=== PATIENT | male | born 1930 | race Caucasian/White ===

== ENCOUNTER 2017-11-19 21:31 | Inpatient (IN) ==
--- NOTE | 2017-11-19 21:56 | Emergency Department Note ---
Disposition Clinical Impression: Hypertensive emergency, Elevated troponin, Nausea and vomiting, Altered mental state Disposition: Admitted As Inpatient Condition: Fair Referrals: Regulo Glover DO [Primary Care Provider] - Forms: ED Satisfaction Letter Time of Disposition: 00:35 Neuro HPI - General Chief Complaint: ED Neuro Symptoms/Deficit Stated Complaint: weakness Time Seen by Provider: 11/19/17 21:40 Source: family Limitations: altered mental status, physical limitation Nursing Notes Reviewed: Yes Vital Signs Reviewed: Yes - History of Present Illness HPI Narrative: 87-year-old male presents from home with son and granddaughter bedside. Yesterday, he had an episode of confusion which spontaneously resolved after an unknown amount time. This evening, he vomited after which he was mumbling and appeared to be confused. This occurred at approximately 18:30. Patient's son notes that patient was weak in his lower extremities in transitioning him from the house to the car. Patient continues to mumble and babble in route. This spontaneously resolves on arrival to this facility. At baseline, patient lives independently with his and is mentally sharp. Patient states he generally does not feel good. PMH: Hypertension, CAD with ACS status post stent 1 No history of CVA, TIA, coagulopathy, cardiac dysrhythmia. Antiplatelet: Aspirin and Plavix Anticoagulant: None ROS: Positive: As above Negative: Fever, chills, chest pain, palpitations, changes in vision, numbness, tingling. - Related Data Allergies/Adverse Reactions: Allergies Allergy/AdvReac Type Severity Reaction Status Date / Time morphine Allergy Confusion Verified 11/19/17 22:13 All systems ED: reviewed and negative except as stated. Review of Systems: As Per HPI Past Medical History - Past Medical History Medical history: Reports: cancer, COPD, coronary artery disease, hyperlipidemia , hypertension Psychiatric history: Reports: no psych history - Social History Smoking Status: Former smoker Alcohol use: Reports: none Drug use: Reports: none Physical Exam Vital Signs Reviewed General: Patient is alert, oriented to self, location, and in no acute distress. Head: atraumatic, normocephalic Eye: normal appearance, PERRL, EOMI, no scleral icterus, no conjunctival injection ENT: mucous membranes moist, normal external ear exam Neck: normal inspection, trachea midline, full ROM Chest: normal inspection, symmetric chest rise Respiratory: Good respiratory effort. Bilateral breath sounds are clear without wheezing, crackles, or rhonchi. Cardiovascular: Regular rate and rhythm. No clicks, rubs, gallops, or murmors. Normal heart sounds. Abdomen: Bowel sounds present normoactive x-4 quadrants. Abdomen is soft, nondistended, and nontender. No guarding or rebound. No organomegaly noted. Musculoskeletal: Spontaneously moving all extremities. Skin: warm, dry, intact. Neuro: GCS 15. Alert and oriented x4. Sensation light touch intact and equal bilateral upper and lower extremities. Strength 5/5 and equal bilateral upper lower extremity is. No pronator drift. Negative finger to nose. Negative heel to farrar. No dysarthria. Psych: Patient's affect is appropriate for situation. - General Limitations: altered mental status, physical limitation Course Course Narrative: Nurse at bedside states the patient did not know where he was on initial intake however, minutes later on my evaluation, patient did know he was at [facility]. Clinical concern is for TIA vs CVA. NIHSS 0. EKG #1 EKG dated 11/19/2017 at 21:37 interpreted as sinus rhythm with rate of 71. ND 228, QTc 453. First-degree AV block. Right bundle branch block. Normal axis. Nonspecific ST-T changes. Compared to previous EKG dated 06/30/1999 showing no acute ischemic changes comparison. EKG #2 EKG dated 11/19/2017 at 22:29 interpreted as sinus rhythm with PAC. First- degree AV block with prolonged ND. QTC 456. Normal axis. Right bundle branch block. Nonspecific ST-T changes. Serum hematology is unremarkable. Serum chemistry shows elevation in creatinine; must assume acute kidney injury in the context of no historian values for comparison. Elevation in troponin of 0.17. No EKG changes. CT head unremarkable. X-ray chest unremarkable. Patient remains hypertensive greater than 200. Concern for hypertensive emergency with kidney injury with elevated creatinine, cardiac injury with troponin, potential cerebral changes with his TIA-like symptoms. We will begin nicardipine drip. Hold on heparin given the patient's hypertension. I discussed the above with the admitting hospitalist who agrees to accept the patient for continued evaluation and management. Head CT 11/19/17 21:51 IMPRESSION: No acute intracranial abnormality. Chronic small vessel ischemic white matter disease and diffuse cerebral volume loss. 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 Right maxillary sinusitis. D/ / 11/19/2017 22:31:58 Isaac Grande MD / alissa Interpreting Provider: Isaac Grande MD Chest X-Ray 11/19/17 21:52 IMPRESSION: Mildly enlarged cardiomediastinal silhouette. No evidence of consolidation, pneumothorax, or pleural effusion. Findings suggestive of COPD. D/ / 11/19/2017 22:37:34 Isaac Grande MD / alissa Interpreting Provider: Isaac Grande MD Vital Signs Temperature 98.3 F 11/19/17 21:36 Pulse Rate 71 11/19/17 21:36 Respiratory Rate 24 11/19/17 21:36 Blood Pressure 225/98 11/19/17 21:36 O2 Sat by Pulse Oximetry 94 11/19/17 21:36 Temperature 98.3 F 11/19/17 21:36 Pulse Rate 79 11/19/17 23:58 Respiratory Rate 19 11/19/17 23:58 Blood Pressure 157/74 11/19/17 23:58 O2 Sat by Pulse Oximetry 96 11/19/17 23:58 Oxygen Delivery Oxygen Delivery Nasal Cannula Neuro Symptoms/Deficit - Lab Data Result diagrams: 11/19/17 21:43 11/19/17 21:43 Lab Results 11/19/17 11/19/17 11/19/17 Range/Units 21:43 21:43 21:43 WBC 9.9 (4.3-11.1) K/mcL RBC 4.61 (4.19-5.50) M/mcL Hgb 14.5 (12.9-16.9) g/dL Hct 42.5 (37.5-50.1) % MCV 92.2 (83.0-100.0) fL MCH 31.5 (28.0-33.3) pg MCHC 34.1 (31.6-35.5) g/dL RDW 12.6 (11.5-14.5) % Plt Count 248 (140-400) K/mcL MPV 9.9 (9.4-12.4) fL Immature Gran % 0.4 (0-4) % Seg Neutrophils % 85.8 % Lymphocytes % 7.5 % Monocytes % 4.7 % Eosinophils % 0.8 % Basophils % 0.8 % Neutrophils # 8.5 (1.6-8.9) K/mcL Lymphocytes # 0.7 (0.6-4.6) K/mcL Monocytes # 0.5 (0.0-1.3) K/mcL Eosinophils # 0.1 (0.0-0.6) K/mcL Basophils # 0.1 (0.0-0.2) K/mcL PT 11.8 (9.4-12.1) Seconds INR 1.0 APTT 29.6 (26.0-36.0) Seconds Sodium 139 (136-145) mEq/L Potassium 3.5 (3.5-5.1) mEq/L Chloride 106 (98-107) mEq/L Carbon Dioxide 23 (23-29) mEq/L BUN 20 (8-23) mg/dL Creatinine 1.45 H (0.70-1.30) mg/dL Est GFR ( Amer) 56 L (> 60) Est GFR (Non-Af Amer) 46 L (> 60) BUN/Creatinine Ratio 14 (6-26) Glucose 132 H (70-105) mg/dL Calculated Osmolality 292 (280-300) Calcium 9.2 (8.6-10.3) mg/dL Troponin I 0.17 H* (< 0.04) ng/mL NIH Stroke Scale - Level of Consciousness LOC: Alert - LOC Questions LOC Questions: Answers both correctly - LOC Commands LOC Commands: Performs both correctly - Best Gaze Best Gaze: Normal - Visual Visual: No visual loss - Facial Palsy Facial Palsy: Normal - Motor Arms Motor Arm-Left: No drift for 10 seconds Motor Arm-Right: No drift for 10 seconds - Motor Legs Motor Leg-Left: No drift for 5 seconds Motor Leg-Right: No drift for 5 seconds - Limb Ataxia Limb Ataxia: Normal, No Ataxia - Sensory Sensory: Normal - Best Language Best Language: No aphasia - Dysarthria Dysarthria: Normal - Extinction and Inattention Extinction and Inattention: Normal - NIHSS Total Score NIHSS Total Score: 0 TPA Checklist - Source Information Source: Family - Contraindications 9. BP elevated (systolic > 185 or diastolic > 110): Yes - LKW: 3-4.5 hrs Add. Warnings/Precautions Patient/family understanding: The patient/family members have been counseled and understood the risk, benefit , and alternatives of treatment.
[2017-11-19 22:02] LABS: Basophils # 0.1 K/mcL (0.0-0.2); Basophils % 0.8 %; Eosinophils # 0.1 K/mcL (0.0-0.6); Eosinophils % 0.8 %; Hematocrit 42.5 % (37.5-50.1); Hemoglobin 14.5 g/dL (12.9-16.9); Immature Granulocytes % 0.4 % (0-4); Lymphocytes # 0.7 K/mcL (0.6-4.6); Lymphocytes % 7.5 %; Mean Corpuscular HGB Conc 34.1 g/dL (31.6-35.5); Mean Corpuscular Hemoglobin 31.5 pg (28.0-33.3); Mean Corpuscular Volume 92.2 fL (83.0-100.0); Mean Platelet Volume 9.9 fL (9.4-12.4); Monocytes # 0.5 K/mcL (0.0-1.3); Monocytes % 4.7 %; Neutrophils # 8.5 K/mcL (1.6-8.9); Platelet Count 248 K/mcL (140-400); Red Blood Count 4.61 M/mcL (4.19-5.50); Red Cell Distribution Width 12.6 % (11.5-14.5); Segmented Neutrophils % 85.8 %
[2017-11-19 22:10] LABS: Prothrombin Time 11.8 Seconds (9.4-12.1)
[2017-11-19 22:13] LABS: Activated Partial Thrombo Time 29.6 Seconds (26.0-36.0)
[2017-11-19 22:16] LABS: Calcium 9.2 mg/dL (8.6-10.3); Potassium 3.5 mEq/L (3.5-5.1)
[2017-11-19 22:19] LABS: Troponin I 0.17 ng/mL (< 0.04)
[2017-11-19] MEDS ORDERED: Ondansetron 4 MG/2 ML VIAL IVP ONE (22:20)
[2017-11-19] MEDS ORDERED: 0.9 % Sodium Chloride 1,000 ML IVC ONE (22:52)
--- NOTE | 2017-11-19 23:00 | Emergency Department Note ---
Disposition Clinical Impression: Hypertensive emergency, Elevated troponin, Nausea and vomiting, Altered mental state Disposition: Admitted As Inpatient Referrals: Regulo Glover DO [Primary Care Provider] - Forms: ED Satisfaction Letter General Adult HPI - General Chief complaint: ED Neuro Symptoms/Deficit Stated complaint: weakness Time Seen by Provider: 11/19/17 21:40 Source: family Limitations: altered mental status, physical limitation - History of Present Illness Pain Scale: 6 - Related Data Allergies Allergy/AdvReac Type Severity Reaction Status Date / Time morphine Allergy Confusion Verified 11/19/17 22:13 Past Medical History - Past Medical History Medical history: Reports: cancer, COPD, coronary artery disease, hyperlipidemia , hypertension Psychiatric history: Reports: no psych history - Social History Smoking Status: Former smoker Alcohol use: Reports: none Drug use: Reports: none Physical Exam - General Limitations: altered mental status, physical limitation Course Vital Signs Temperature 98.3 F 11/19/17 21:36 Pulse Rate 71 11/19/17 21:36 Respiratory Rate 24 11/19/17 21:36 Blood Pressure 225/98 11/19/17 21:36 O2 Sat by Pulse Oximetry 94 11/19/17 21:36 Temperature 98.3 F 11/19/17 21:36 Pulse Rate 78 11/19/17 22:30 Respiratory Rate 20 11/19/17 22:30 Blood Pressure 205/107 11/19/17 22:30 O2 Sat by Pulse Oximetry 91 11/19/17 22:30 Oxygen Delivery Oxygen Delivery Room Air Medical Decision Making - Lab Data Result diagrams: 11/19/17 21:43 11/19/17 21:43 Lab Results 11/19/17 11/19/17 11/19/17 Range/Units 21:43 21:43 21:43 WBC 9.9 (4.3-11.1) K/mcL RBC 4.61 (4.19-5.50) M/mcL Hgb 14.5 (12.9-16.9) g/dL Hct 42.5 (37.5-50.1) % MCV 92.2 (83.0-100.0) fL MCH 31.5 (28.0-33.3) pg MCHC 34.1 (31.6-35.5) g/dL RDW 12.6 (11.5-14.5) % Plt Count 248 (140-400) K/mcL MPV 9.9 (9.4-12.4) fL Immature Gran % 0.4 (0-4) % Seg Neutrophils % 85.8 % Lymphocytes % 7.5 % Monocytes % 4.7 % Eosinophils % 0.8 % Basophils % 0.8 % Neutrophils # 8.5 (1.6-8.9) K/mcL Lymphocytes # 0.7 (0.6-4.6) K/mcL Monocytes # 0.5 (0.0-1.3) K/mcL Eosinophils # 0.1 (0.0-0.6) K/mcL Basophils # 0.1 (0.0-0.2) K/mcL PT 11.8 (9.4-12.1) Seconds INR 1.0 APTT 29.6 (26.0-36.0) Seconds Sodium 139 (136-145) mEq/L Potassium 3.5 (3.5-5.1) mEq/L Chloride 106 (98-107) mEq/L Carbon Dioxide 23 (23-29) mEq/L BUN 20 (8-23) mg/dL Creatinine 1.45 H (0.70-1.30) mg/dL Est GFR ( Amer) 56 L (> 60) Est GFR (Non-Af Amer) 46 L (> 60) BUN/Creatinine Ratio 14 (6-26) Glucose 132 H (70-105) mg/dL Calculated Osmolality 292 (280-300) Calcium 9.2 (8.6-10.3) mg/dL Troponin I 0.17 H* (< 0.04) ng/mL Critical Care Time Critical Care Time: Yes Total Critical Care Time: 35 Attestation: Critical care time of 35 minutes spent in treatment of hypertensive emergency Attestation Statement - Attestation Attestation: I examined this patient and my medical decision-making was reviewed with the Resident Physician. I agree with the documented findings, disposition and treatment plan as described except to the extent set forth below. 87 yo male presents emergency room for concerns for elevated blood pressure and possible stroke symptoms. Family had noted that he was having some problems with articulation last night and then returned again today with that. His blood pressures been severely elevated greater than 220. He also admits to a headache. He has associated nausea and vomiting. Denies chest pain. No numbness in his face arm or leg. No blindness in his eye. CT of the head was negative for any acute process. I feel his symptoms are secondary to hypertensive emergency. He has troponin elevation of 0.17. We have done 2 EKGs in the ER that did not show any ST elevation MS findings. He denies chest pain to me. His blood pressure is been remaining high at greater than 200 even after IV hydralazine. I elected to start him on a low-dose Cardene drip. will consult with hopsitalist for coagulation; i'm concerned with the HTN issue. IV fluids as well admit
[2017-11-19] MEDS: niCARdipine 40 MG/200 ML MLS IVC SCH (23:10)
[2017-11-20] MEDS ORDERED: Naloxone 0.4 MG/ML INJ IVP PRN (01:33)
[2017-11-20] MEDS ORDERED: Acetaminophen 325 MG TABLET PO PRN (01:33)
[2017-11-20] MEDS ORDERED: *HR* HYDROcodone/Acet 5/325 mg TABLET PO PRN (01:33)
[2017-11-20] MEDS ORDERED: *HR* OxyCODONE Immed Rel 5 MG TABLET PO PRN (01:33)
--- NOTE | 2017-11-20 02:14 | Internal Med History&Physical ---
Date of Encounter: 11/20/17 Time of Encounter: 02:12 Internal Medicine - H&P: HPI Chief complaint: HTN/AMS Admitted From: Home Plans for Post Hospital Care: Home History of present illness: Mr. Wise is a 87 year old male with history of hypertension, coronary disease who presents with intermittent confusion. At the time I examined the patient was acutely confused and was unable to give a full history. There is no family at bedside, most of the history is obtained from medical record. He states that he presented for abdominal pain that is resolved at this time. Generally he feels like he is better. He is slow to answer questions and requires extra time to think through basic questions, however he is alert and oriented 3. He has acute complaints at this time. Denies headache, chest pain , shortness of breath, abdominal pain, nausea, vomiting, fever, chills, dysuria. Past Med Surg Social Fam HX - Past Medical History Medical history: cancer, COPD, coronary artery disease, hyperlipidemia, hypertension Additional medical history: Bladder cancer Psychiatric history: no psych history - Past Surgical History Surgical History: cancer surgery Additional surgical history: Bladder sx - Social History Smoking Status: Former smoker Alcohol use: none Drug use: none Internal Medicine - H&P: Meds 3 Allergy/AdvReac Type Severity Reaction Status Date / Time morphine Allergy Confusion Verified 11/19/17 22:13 ROS unobtainable: due to mental status All Systems PM: A 10-system review of systems was performed and is negative for pertinent findings except as documented above in the HPI. - Constitutional Vitals: Temp Pulse Resp BP Pulse Ox 100.5 F H 76 12 161/72 93 11/20/17 01:13 11/20/17 01:13 11/20/17 01:13 11/20/17 01:13 11/20/17 01:13 General appearance: Present: A&O X 3, no acute distress Exam: . - Head Head exam: Present: atraumatic, normal inspection, normocephalic - Eye Eye exam: Present: EOMI, PERRL - ENT ENT exam: Present: mucous membranes moist - Respiratory Respiratory exam: Present: CTAB. Absent: rales, rhonchi, wheezes - Cardiovascular Cardiovascular exam: Present: RRR. Absent: irregular rhythm, rubs, systolic murmur, tachycardia - GI/Abdominal GI/Abdominal exam: Present: diminished bowel sounds, soft. Absent: distended, tenderness - Extremities Exam Extremities exam: Present: warm. Absent: pedal edema, tenderness - Neurological Exam Neurological exam: Present: alert, altered, oriented X3, no focal deficits, strengths equal and symetr throughout. Absent: speech deficit - Psychiatric Psychiatric exam: Present: flat affect - Skin Skin exam: Present: dry, intact, warm Internal Med - H&P Results - Labs CBC & Chem 7: 11/20/17 03:59 11/20/17 03:59 - Assessment and plan (1) Acute encephalopathy Current Visit: Yes Status: Acute Assessment and plan: Likely hypertensive encephalopathy. Waxing and waning, likely due to blood pressure variations. Patient remained somewhat altered but is alert and oriented 3 and appears to be improving based on previous documentation. CT of the head is negative. Continue to monitor, if patient remains altered consider MRI brain (2) Hypertensive emergency Current Visit: Yes Status: Acute Assessment and plan: With hypertensive encephalopathy and possible JIM as well as elevated troponins. The pressure was 225/98 on presentation. Patient was started on Cardene which has lowered his blood pressure significantly. Cardene drip is now off and blood pressure is in the 140s over 70s. Ideally we would aim for a 20% reduction in the patient's blood pressure however he is lower than this even without treatment. No evidence of any new neurologic deficits. We will monitor closely with neuro checks every 2h. Once we obtain the patient's home medication list we will restart home antihypertensive. (3) JIM (acute kidney injury) Current Visit: Yes Status: Acute Assessment and plan: Presumed to be acute however we have no previous laboratory values to compare to. Possibly due to hypertensive emergency. Good urine output. We will check urine creatinine, urine sodium, urine osmolality, retroperitoneal ultrasound. (4) Elevated troponin Current Visit: Yes Status: Acute Assessment and plan: Likely due to accelerated hypertension as discussed above. No active chest pain. No ischemic changes noted on EKG. We will trend troponins and check echocardiogram for EF and wall motion abnormalities. With accelerated HTN patient would be at high risk for intracranial hemorrhage with anticoagulation so will not start heparin drip at this time, concern for ACS is low with no chest pain or EKG changes (5) Coronary artery disease Current Visit: Yes Status: Acute Assessment and plan: History of. Patient is unable to provide a complete history of when his last intervention was. No active chest pain at this time, elevated troponin likely due to hypertension as discussed above. Patient does report being on Plavix at home but complete med list is unavailable at this time. We will start aspirin and follow-up on medications in the morning. Qualifiers: Coronary Disease-Associated Artery/Lesion type: [place] artery [place] vs. transplanted heart: [place] heart Associated angina: without angina Qualified Code(s): I25.10 - Atherosclerotic heart disease of [place] coronary artery without angina pectoris (6) DVT prophylaxis Current Visit: Yes Status: Acute Assessment and plan: Heparin 5000 units subcutaneous twice a day - Time Spent With Patient Total time spent is greater than 50% in coordination of care (as documented) at patient's floor/unit and/or counseling patient:
[2017-11-20 04:21] LABS: Basophils # 0.1 K/mcL (0.0-0.2); Basophils % 0.6 %; Eosinophils % 0.3 %; Hematocrit 38.2 % (37.5-50.1); Immature Granulocytes % 0.3 % (0-4); Lymphocytes # 1.2 K/mcL (0.6-4.6); Lymphocytes % 12.1 %; Mean Corpuscular Hemoglobin 31.6 pg (28.0-33.3); Mean Corpuscular Volume 92.7 fL (83.0-100.0); Mean Platelet Volume 9.8 fL (9.4-12.4); Monocytes # 0.9 K/mcL (0.0-1.3); Monocytes % 8.5 %; Neutrophils # 7.9 K/mcL (1.6-8.9); Platelet Count 233 K/mcL (140-400); Red Blood Count 4.12 M/mcL (4.19-5.50); Red Cell Distribution Width 12.7 % (11.5-14.5); Segmented Neutrophils % 78.2 %
[2017-11-20 04:42] LABS: BUN/Creatinine Ratio 14 (6-26); Blood Urea Nitrogen 18 mg/dL (8-23); Calcium 8.5 mg/dL (8.6-10.3); Carbon Dioxide 22 mEq/L (23-29); Chloride 109 mEq/L (98-107); Glucose 114 mg/dL (70-105); Magnesium 1.8 mg/dL (1.6-2.6); Osmolality,Calculated 293 (280-300); Potassium 3.7 mEq/L (3.5-5.1); Sodium 140 mEq/L (136-145); eGFR For Non-African Americans 53 (> 60)
[2017-11-20 04:45] LABS: Troponin I 0.44 ng/mL (< 0.04)
[2017-11-20] MEDS: niCARdipine 40 MG/200 ML MLS IVC SCH (06:41)
[2017-11-20] MEDS: *HR* Heparin 5,000 UNIT/ML VIAL SQ SCH ×2 (06:45→17:42)
[2017-11-20] MEDS: Aspirin 81 MG TAB.CHEW PO SCH (09:33)
--- NOTE | 2017-11-20 11:21 | Internal Med Progress Note ---
Hospitalist Progress Note - Encounter Date of Encounter: 11/20/17 Time of Encounter: 11:18 - Subjective Interval History: Patient is an 87 year old male with history of hypertension who was admitted for hypertensive emergency with subsequent acute encephalopathy. Patient stated that during that time, he said he tried to find words to communicate and found it difficult to do so. In the ED he was started on nifedipine drip and BP turned normal. He currently has no complaints for me this AM. He denies headache, change in vision (has macular degen at baseline), chest pain, shortness of breath, palpitations. - Exam Vitals: Temp Pulse Resp BP Pulse Ox 98.2 F 52 12 173/76 96 11/20/17 07:10 11/20/17 08:00 11/20/17 08:00 11/20/17 08:00 11/20/17 08:00 Exam: Gen: NAD, AAOx3 CVS: bradycardic, no m/r/g Lungs: Course breath sounds throughout. Abd; NT/ND Ext: no edema, no cyanosis. - Assessment and Plan (1) Acute encephalopathy Current Visit: Yes Status: Acute Assessment and Plan: Likely hypertensive encephalopathy. Waxing and waning, likely due to blood pressure variations. Patient remained somewhat altered but is alert and oriented 3 and appears to be improving based on previous documentation. CT of the head is negative. Continue to monitor, Patient stated he did have some difficulty findings words when he wanted to speak. CT head negative for acute bleed. 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 Although likely from hypertensive encephalopathy, will do a stat MRI to rule out CVA. This may dictate management of BP control based on findings. If positive for CVA, then would consult Neurology. (2) Hypertensive emergency Current Visit: Yes Status: Acute Assessment and Plan: With hypertensive encephalopathy and possible JIM as well as elevated troponins. The pressure was 225/98 on presentation. Patient was started on Cardene which has lowered his blood pressure significantly. Cardene drip is now off and blood pressure is in the 140s over 70s. Ideally we would aim for a 20% reduction in the patient's blood pressure however he is lower than this even without treatment. We will monitor closely with neuro checks every 2h. - BP now 150s/70s. Will resume home medications and discontinue drip. (3) Elevated troponin Current Visit: Yes Status: Acute Assessment and Plan: Likely due to accelerated hypertension as discussed above. No active chest pain. No ischemic changes noted on EKG. We will trend troponins and check echocardiogram for EF and wall motion abnormalities. With accelerated HTN patient would be at high risk for intracranial hemorrhage with anticoagulation so will not start heparin drip at this time, concern for ACS is low with no chest pain or EKG changes This morning trop went from 0.17 to 0.44, a repeat now is 0.29. This is likely due to hypertension as stated above. No heparin given because of high risk of intracranial hemorrhage. He denies chest pain, shortness of breath. Will consider Cardiology consult. (4) JIM (acute kidney injury) Current Visit: Yes Status: Acute Assessment and Plan: Presumed to be acute however we have no previous laboratory values to compare to. Possibly due to hypertensive emergency. Good urine output. Improved from 1.45 to 1.28 now. Likely was related to increased BP. (5) Coronary artery disease Current Visit: Yes Status: Acute Assessment and Plan: History of. Patient is unable to provide a complete history of when his last intervention was. No active chest pain at this time, elevated troponin likely due to hypertension as discussed above. Patient does report being on Plavix at home but complete med list is unavailable at this time. We will start aspirin and follow-up on medications in the morning. (6) DVT prophylaxis Current Visit: Yes Status: Acute Assessment and Plan: Heparin 5000 units subcutaneous twice a day - Time Spent with Patient Total time spent is greater than 50% in coordination of care (as documented) at patient's floor/unit and/or counseling patient: Internal Medicine: Result - Labs CBC & Chem 7: 11/20/17 03:59 11/20/17 03:59 Labs: Cardiac Enzymes 11/20/17 Range/Units 10:15 Troponin I 0.29 H* (< 0.04) ng/mL - ABG Interpretation ABG results: PT/INR, D-dimer PT 11.8 Seconds (9.4-12.1) 11/19/17 21:43 Consult Discharge Plan - Plan Referrals: Regulo Glover, [Primary Care Provider] - (5) Coronary artery disease Qualifiers: Coronary Disease-Associated Artery/Lesion type: [place] artery [place] vs. transplanted heart: [place] heart Associated angina: without angina Qualified Code(s): I25.10 - Atherosclerotic heart disease of [place] coronary artery without angina pectoris
[2017-11-20] MEDS: amLODIPine 5 MG TABLET PO SCH (17:42)
[2017-11-21] MEDS: *HR* Heparin 5,000 UNIT/ML VIAL SQ SCH ×2 (05:08→17:37)
[2017-11-21 06:24] LABS: Bilirubin,Urine Negative (Negative); Blood,Urine Small (Negative); Clarity,Urine Cloudy (Clear); Color,Urine Yellow (Yellow); Glucose,Urine (UA) Normal (Normal); Ketones,Urine Negative (Negative); Leukocyte Esterase,Urine Negative (Negative); Nitrite,Urine Negative (Negative); PH,Urine 6.5 pH Units (5.0-8.0); Protein,Urine 30 mg/dL (Neg-Trace); Specific Gravity,Urine 1.006 (1.010-1.025); Urobilinogen,Urine Normal (Normal)
[2017-11-21 06:26] LABS: Bacteria,Urine None Seen per hpf (None-Few); RBC,Urine 0-3 per hpf (0-3); Squamous Epithelial Cell,Urine Many per lpf (None-Few); WBC,Urine 15-30 per hpf (0-3)
[2017-11-21 06:48] LABS: Sodium, Urine 26.7 mEq/L
[2017-11-21 06:55] LABS: Calcium 8.5 mg/dL (8.6-10.3); Potassium 3.7 mEq/L (3.5-5.1)
[2017-11-21] MEDS: Aspirin 81 MG TAB.CHEW PO SCH (09:47)
[2017-11-21] MEDS: Cholecalciferol (D-3) 1,000 UNIT TABLET PO SCH (09:48)
[2017-11-21] MEDS: amLODIPine 5 MG TABLET PO SCH (12:07)
[2017-11-21] MEDS: Multivit/Ca/Min/Fe/FA 1 TAB TABLET PO SCH (12:07)
--- NOTE | 2017-11-21 12:55 | Cardiology Consult Note ---
Date of Encounter: 11/21/17 Time of Encounter: 12:52 Assessment and Plan (1) CAD in [place] artery Current Visit: Yes Status: Acute Patient with a known history of CAD, recent PCI a few months ago. 5 total stents. No chest pain reported. Minimal troponin elevation in the setting of hypertensive urgency. No acute ECG changes. Presentation is not consistent with ACS. Recommend continued medical therapy, including aspirin, Plavix, statin. Start low-dose beta arpita. No further inpatient cardiac testing appears to be necessary. Recommend follow-up with contour band saw operator vertical in 2-4 weeks. Cardiology will sign off. (2) Elevated troponin Current Visit: Yes Status: Acute See comments under CAD. Flat, adynamic troponin elevation in the setting of hypertensive urgency. No acute ECG changes or chest pain. Normal LVEF without segmental wall motion changes. Presentation is not consistent with ACS. No further testing appears to be necessary. (3) Hypertensive emergency Current Visit: Yes Status: Acute Blood pressure has improved. Low-sodium diet emphasized. Patient admits he has not been taking his blood pressure medications. Compliance with medical therapy was emphasized. Patient was encouraged to maintain a blood pressure log at home and bring to his visits. Discussion w patient/family: The assessment and plan as outlined above was discussed with the patient and/or family members who expressed understanding and agreement. All questions were answered. Thank you for involving us in the care of your patient. Please call with any questions. History of Present Illness Consult date: 11/21/17 Requesting physician: Caesar Vann Consult reason: Troponin elevation Chief complaint: Confusion History of present illness: Mr. Wise is a 87 year old male with a known history of CAD, 5 previous stents. Patient's primary contour band saw operator vertical is Dr. Gabriel Armas at [facility]. States most recent stent was 2 months ago. Patient reports a history of noncompliance with blood pressure medications. Presented with increasing confusion, disorientation. Upon admission, his blood pressure was reportedly as high as 225/98. Patient denies any chest pain or discomfort. CT reportedly negative for acute findings. Blood pressure better controlled over night and this morning. TTE resulted, LVEF 60-65%. Mild diastolic dysfunction. Normal RV size and function. No significant valvular dysfunction. Serum creatinine 1.55, previous 1.28 and 1.45. Serial troponin measurements 0.17, 0.44, 0.29, 0.24. Past Med Surg Social Fam HX - Past Medical History Medical history: cancer, COPD, coronary artery disease, hyperlipidemia, hypertension Additional medical history: Bladder cancer Psychiatric history: no psych history - Past Surgical History Surgical History: cancer surgery Additional surgical history: Bladder sx - Social History Smoking Status: Former smoker Alcohol use: none Drug use: none Medications and Allergies Albuterol Sulfate [Albuterol Inhaler] 2 puff IH QID PRN 11/20/17 [History] Allopurinol [Zyloprim 100 MG] 100 mg PO DAILY 11/20/17 [History] Amlodipine Besylate 10 mg PO DAILY 11/20/17 [History] Atorvastatin [Lipitor] 20 mg PO HS 11/20/17 [History] C,E,Zinc,Copper 11/Rraib9t/Lut [Ocuvite Adult 50 Plus Softgel] 1 tab PO DAILY [History] Cholecalciferol (Vitamin D3) [Vitamin D] 2,000 unit PO DAILY 11/20/17 [History] Clopidogrel [Plavix] 75 mg PO DAILY 11/20/17 [History] Losartan Potassium [Cozaar] 100 mg PO DAILY 11/20/17 [History] 3 Allergy/AdvReac Type Severity Reaction Status Date / Time morphine Allergy Confusion Verified 11/19/17 22:13 All Systems Review: The remainder of the systems were reviewed and are negative - Constitutional Constitutional: weakness - Cardiovascular Cardiovascular: as per HPI - Neurological Neurological: abnormal speech Physical Examination Vital Signs, Last 4 Hours Temp Pulse Resp BP Pulse Ox 11/21/17 12:00 97.9 F 55 18 152/69 93 General: Conversant, No Apparent Distress HEENT: Atraumatic, Normocephaly, Mucus Membranes Moist Neck: No JVD, Normal carotid pulses Cardiac: Reg Rate and Rhythm, Normal S1 and S2, No Murmur Lungs: Normal Breath Sounds, No Wheeze, Rales, Rhonchi Neuro: Alert and responsive, No focal deficits noted Abdomen: Soft, Non-Tender Skin: No rashes noted on visualized skin Musculoskeletal: No Chest Wall Tenderness Extremities: No Clubbing, No Cyanosis, No Edema Results 11/20/17 03:59 11/21/17 06:13 Lab Results 11/20/17 11/21/17 15:47 06:13 Sodium 139 Potassium 3.7 Chloride 110 H Carbon Dioxide 21 L BUN 26 H Creatinine 1.55 H Glucose 121 H Calcium 8.5 L Troponin I 0.24 H* - Imaging and Cardiology Echo: report reviewed - EKG Interpretation EKG results cardiology: personally reviewed Consult Discharge Plan - Plan Referrals: Regulo Glover DO [Primary Care Provider] -
[2017-11-21] MEDS: Metoprolol XL (24 HR) Succ 25 MG TAB.ER.24H PO SCH (13:38)
--- NOTE | 2017-11-21 15:07 | Internal Med Progress Note ---
Hospitalist Progress Note - Encounter Date of Encounter: 11/21/17 Time of Encounter: 13:00 - Subjective Interval History: Patient is an 87 year old male with history of hypertension who was admitted for hypertensive emergency with subsequent acute encephalopathy. Patient stated that during that time, he said he tried to find words to communicate and found it difficult to do so. In the ED he was started on nifedipine drip and BP turned normal. He currently has no complaints for me this AM. He denies headache, change in vision (has macular degen at baseline), chest pain, shortness of breath, palpitations. 11/21: Patient feels better but he does desaturate when ambulating. He denies chest pain, denies shortness of breath during that time. - Exam Vitals: Temp Pulse Resp BP Pulse Ox 97.9 F 55 18 152/69 92 11/21/17 12:11/21/17 12:11/21/17 12:11/21/17 12:11/21/17 14:11 Exam: Gen: NAD, AAOx3 CVS: bradycardic, no m/r/g Lungs: Course breath sounds throughout. Abd; NT/ND Ext: no edema, no cyanosis. - Assessment and Plan (1) Acute encephalopathy Current Visit: Yes Status: Acute Assessment and Plan: Likely hypertensive encephalopathy. Waxing and waning, likely due to blood pressure variations. Patient remained somewhat altered but is alert and oriented 3 and appears to be improving based on previous documentation. CT of the head is negative. Patient stated he did have some difficulty findings words when he wanted to speak. CT head negative for acute bleed. 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 An MRI was negative for any acute process. Likely this was hypertensive encephalopathy (2) Hypertensive emergency Current Visit: Yes Status: Acute Assessment and Plan: With hypertensive encephalopathy and possible JIM as well as elevated troponins. The pressure was 225/98 on presentation. Patient was started on Cardene which has lowered his blood pressure significantly. Cardene drip is now off and blood pressure is in the 140s over 70s. Ideally we would aim for a 20% reduction in the patient's blood pressure however he is lower than this even without treatment. We will monitor closely with neuro checks every 2h. - BP now 150s/70s. Drip discontinued. Cardiology to added metoprolol succinate today Continue amlodipine. (3) Elevated troponin Current Visit: Yes Status: Acute Assessment and Plan: Likely due to accelerated hypertension as discussed above. No active chest pain. No ischemic changes noted on EKG. We will trend troponins and check echocardiogram for EF and wall motion abnormalities. With accelerated HTN patient would be at high risk for intracranial hemorrhage with anticoagulation so will not start heparin drip at this time, concern for ACS is low with no chest pain or EKG changes This morning trop went from 0.17 to 0.44, a repeat now is 0.29. This is likely due to hypertension as stated above. No heparin given because of high risk of intracranial hemorrhage. He denies chest pain, shortness of breath. Cardiology consulted, seems less likely ACS related after Cardiology eval. (4) JIM (acute kidney injury) Current Visit: Yes Status: Acute Assessment and Plan: Presumed to be acute however we have no previous laboratory values to compare to. Possibly due to hypertensive emergency. Good urine output. Improved from 1.45 to 1.28 , today 1.5. Getting records from [place], unsure of baseline but family did tell me he has stage 3 CKD which would be consistent with this. (5) Coronary artery disease Current Visit: Yes Status: Acute Assessment and Plan: History of. Patient is unable to provide a complete history of when his last intervention was. No active chest pain at this time, elevated troponin likely due to hypertension as discussed above. Patient does report being on Plavix at home but complete med list is unavailable at this time. We will start aspirin and follow-up on medications in the morning. (6) DVT prophylaxis Current Visit: Yes Status: Acute Assessment and Plan: Heparin 5000 units subcutaneous twice a day - Time Spent with Patient Total time spent is greater than 50% in coordination of care (as documented) at patient's floor/unit and/or counseling patient: Internal Medicine: Result - Labs CBC & Chem 7: 11/20/17 03:59 11/21/17 06:13 Labs: BMP 11/21/17 06:13 Sodium 139 Potassium 3.7 Chloride 110 H Carbon Dioxide 21 L BUN 26 H Creatinine 1.55 H Glucose 121 H Calcium 8.5 L Cardiac Enzymes 11/20/17 Range/Units 15:47 Troponin I 0.24 H* (< 0.04) ng/mL Urine 11/21/17 Range/Units 06:05 Urine Color Yellow (Yellow) Urine Clarity Cloudy A (Clear) Urine pH 6.5 (5.0-8.0) pH Units Ur Specific [place] 1.006 L (1.010-1.025) Urine Protein 30 H (Neg-Trace) mg/dL Urine Glucose (UA) Normal (Normal) mg/dL - ABG Interpretation ABG results: PT/INR, D-dimer PT 11.8 Seconds (9.4-12.1) 11/19/17 21:43 - Impressions Impressions Retroperitoneum Ultrasound 11/20/17 18:00 IMPRESSION: 1. Simple cyst in the left kidney with no other significant renal findings. 2. Cholelithiasis. D/ / Meliton Sheikh MD / Meliton Sheikh MD Interpreting Provider: Meliton Sheikh MD Consult Discharge Plan - Plan Referrals: Regulo Glover, [Primary Care Provider] - (5) Coronary artery disease Qualifiers: Coronary Disease-Associated Artery/Lesion type: [place] artery [place] vs. transplanted heart: [place] heart Associated angina: without angina Qualified Code(s): I25.10 - Atherosclerotic heart disease of [place] coronary artery without angina pectoris
[2017-11-22] MEDS: *HR* Heparin 5,000 UNIT/ML VIAL SQ SCH (05:39)
[2017-11-22 07:19] LABS: Calcium 8.5 mg/dL (8.6-10.3); Potassium 3.6 mEq/L (3.5-5.1)
[2017-11-22] MEDS: Cholecalciferol (D-3) 1,000 UNIT TABLET PO SCH (09:22)
[2017-11-22] MEDS: Metoprolol XL (24 HR) Succ 25 MG TAB.ER.24H PO SCH (09:22)
[2017-11-22] MEDS: amLODIPine 5 MG TABLET PO SCH (09:22)
[2017-11-22] MEDS: Aspirin 81 MG TAB.CHEW PO SCH (09:22)
[2017-11-22] MEDS: Multivit/Ca/Min/Fe/FA 1 TAB TABLET PO SCH (09:22)
--- NOTE | 2017-11-22 10:42 | Discharge Summary ---
- NOTES TO OUTPATIENT PROVIDER Notes to Outpatient Provider: - Assess if needs to go back on Losartan or not. - Cardiology dept will be calling patient to arrange follow-up Date of Encounter: 11/22/17 Time of Encounter: 10:38 - Discharge Diagnosis (1) Acute encephalopathy Priority: Primary Status: Acute Assessment and Plan: Secondary to hypertensive emergency (2) Hypertensive emergency Priority: Secondary Status: Acute (3) Elevated troponin Priority: Secondary Status: Acute (4) JIM (acute kidney injury) Priority: Secondary Status: Acute (5) Coronary artery disease Priority: Secondary Status: Acute Qualifiers: Coronary Disease-Associated Artery/Lesion type: [place] artery [place] vs. transplanted heart: [place] heart Associated angina: without angina Qualified Code(s): I25.10 - Atherosclerotic heart disease of [place] coronary artery without angina pectoris (6) DVT prophylaxis Priority: Secondary Status: Acute Hospital course: Mr. Wise is a 87 year old male with history of hypertension, coronary disease who presents with intermittent confusion. On admission, history was obtained by medical records because patient was confused. This eventually resolved. He was found to have BP 225/[address] head was negative. He was started on Cardene drip that lowered BP and mental status improved. He had no neurological defects during that time. He had borderline elevated creatinine but stated he has CKD at baseline. Since patient noted that he was having trouble speaking at that time, a stat MRI was done and was negative for any acute infarct, it did show chronic lacunar infarcts. He was transitioned off Cardene drip. He had elevated troponin on admission at 0.17, peaking at 0.44 and then went to 0.29. He had atypical chest pain during that time. Cardiology was consulted and no further workup was warranted after evaluation. He was started on low dose Toprol XL. Losartan was held because of questionable renal function. Prior to discharge, patient had desaturation, requiring supplemental oxygen. He is being discharged with O2 tank with follow-up with primary care physician. Will need to determine if Losartan can be restarted. - Time Spent with Patient Total time spent providing and/or coordinating discharge services: - Discharge Medications Prescriptions: Aspirin 81 mg PO DAILY #30 tab.chew Metoprolol XL (24 HR) Succ [Toprol Xl] 25 mg PO DAILY #30 tab.er.24h Home Medications: Albuterol Sulfate [Albuterol Inhaler] 2 puff IH QID PRN 11/20/17 [History] Allopurinol [Zyloprim 100 MG] 100 mg PO DAILY 11/20/17 [History] Amlodipine Besylate 10 mg PO DAILY 11/20/17 [History] Atorvastatin [Lipitor] 20 mg PO HS 11/20/17 [History] C,E,Zinc,Copper 11/Dndhh7l/Lut [Ocuvite Adult 50 Plus Softgel] 1 tab PO DAILY [History] Cholecalciferol (Vitamin D3) [Vitamin D3] 2,000 unit PO DAILY 11/20/17 [History] Clopidogrel [Plavix] 75 mg PO DAILY 11/20/17 [History] Aspirin 81 mg PO DAILY #30 tab.chew 11/22/17 [Rx] Metoprolol XL (24 HR) Succ [Toprol Xl] 25 mg PO DAILY #30 tab.er.24h 11/22/17 [ Rx] Allergies/Adverse Reactions: 3 Allergy/AdvReac Type Severity Reaction Status Date / Time morphine Allergy Confusion Verified 11/19/17 22:13 Date of admission: 11/20/17 06:17 Primary care physician: Regulo Glover Consults: 11/20/17 16:48 Consult to Cardiology [CONS] Routine Comment: Consulting Provider: Cardiology Rosemarie Reason for Consult: elevated troponin Call Completed: No Discharging clinician: Caesar Vann - Constitutional Vitals: Temp Pulse Resp BP Pulse Ox 97.9 F 59 18 166/83 94 11/22/17 07:04 11/22/17 07:04 11/22/17 07:04 11/22/17 07:04 11/22/17 07:04 General appearance: Present: A&O X 3, no acute distress Exam: NAD - Head Head exam: Present: atraumatic, normocephalic - Eye Eye exam: Present: PERRL, conjuntiva pink, sclera anicteric Pupils: Present: PERRL - Neck Neck exam general surgery: Present: supple, trachea midline. Absent: lymphadenopathy - Respiratory Respiratory exam: Present: CTAB. Absent: accessory muscle use, rales, rhonchi, wheezes - Cardiovascular Cardiovascular exam: Present: RRR, +S1, +S2. Absent: diastolic murmur, gallop, rubs, systolic murmur - GI/Abdominal GI/Abdominal exam: Present: normal bowel sounds, soft, no peritoneal signs. Absent: distended, tenderness - Extremities Exam Extremities exam: Present: warm, radial pulses palpable and symmetrical. Absent : calf tenderness, cyanotic, pedal edema - Neurological Exam Neurological exam: Present: CN II-XII intact, oriented X3, no focal deficits. Absent: pronater drift, facial droop, speech deficit - Skin Skin exam: Present: dry, intact - Patient Status Disposition: Home, Self-Care Condition: Fair Functional capacity at discharge: independent ambulation Overall status at discharge: patient is progressing back to baseline - Discharge Instructions Follow Up With: Regulo Glover DO [Primary Care Provider] - - Diet and Activity Activity: as per physical therapy Diet: advance to your usual diet
[2017-11-22 13:58] VITALS: BP 155/69
--- NOTE | 2017-11-24 12:05 | Electrocardiograph Report ---
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
--- NOTE | 2017-11-24 12:07 | Electrocardiograph Report ---
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
== END 2017-11-22 16:09 | disposition home or self-care (01) | DRG 305 ==
LOC: ICNU 21:31 → EMEROOARM 21:31 → ICNU 11-20 00:53 → 2SOUTHHOLD 11-20 11:09
PROVIDERS: ADMIT Pediatrics; ATTEND Pediatrics